=== PATIENT | female | born 1995 | race Asian ===

== ENCOUNTER 2017-10-24 18:12 | Emergency (ER) | payer OTHER ==
[~2017-10-24] VITALS: Ht 161.3 cm; Wt 54.3 kg
[2017-10-24 18:38] VITALS: BP 119/78; PULSE 88; TEMP 36.5; O2SAT 99; Ht 161.3 cm; Wt 54.3 kg
--- NOTE | 2017-10-24 19:41 | DIAGNOSTIC IMAGING REPORT ---
R TIBIA/FIBULA 2 VIEWS ROUTINE CLINICAL HISTORY: 21 years-old Female presenting with R lower leg pain. TECHNIQUE: Frontal and lateral views of the right lower leg were obtained. COMPARISON: None. FINDINGS: No acute fracture or malalignment. No advanced degenerative change. No radiographic soft tissue abnormality. IMPRESSION: No acute osseous injury. Electronically signed by: Tyrel Jones M.D. 10/24/2017 7:39 PM Dictated Date/Time: 10/24/2017 7:39 PM
--- NOTE | 2017-10-24 20:47 | EMERGENCY ROOM VISIT NOTE ---
ED Visit Note First contact with patient: 18:42 Chief Complaint: Right bond pain. History of Present Illness: Ms. Koenig is a 21-year-old female who ambulates into the ED complaining of right lower leg pain. Historically patient reports she had right lower leg pain last year while taking an exercise class. When she was done with the class which include running her pain slowly resolved. She reports she is just recently started running in a class I day ago and now her pain has returned. She is expressing concerns for a possible stress fracture. Patient is currently complaining of pain over the lateral tibia/fibula approximately 5-6 cm above the lateral malleolus. She reports at rest her pain is an achy sensation and she rates her discomfort 2/10. When she is running her pain becomes sharp in nature and increases to 6/10. Her pain is at the identical location that was last year. She has not taken any medication for pain prior to arrival at the hospital. Additionally palpation of the area increases her discomfort. She denies any associated symptoms including hip pain , knee pain, ankle pain, foot pain, leg weakness/numbness/tingling. Review of Systems: As noted above in history of present illness. Past Medical History: Pacemaker implantation. Current Medications: Patient denies. Allergies to Medications: Patient denies. 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 Physical Examination: Vital Signs: Date Time Temp Pulse Resp B/P (MAP) Pulse Ox O2 Delivery O2 Flow Rate FiO2 10/24/17 18:38 36.5 88 16 119/78 99 Room Air GENERAL: 21-year-old female in no acute distress, nontoxic-appearing, afebrile and hemodynamically stable. NEUROLOGICAL: Awake, alert and oriented to person, place and time. Answering questions appropriately and following commands. Normal gait. SKIN: Warm, dry and pink. No soft tissue eruptions or trauma noted. RIGHT LOWER EXTREMITY: No gross bony deformity. No shortening or malrotation. No tenderness over the hip, knee or ankle. Mild to moderate tenderness 5-6 cm superior to the lower malleolus over the lateral tibia and fibula. There is no bony deformity or bony crepitus in this area. There is no swelling or ecchymosis. No tenderness over the gastroc medius or Achilles tendon. She has full range of motion in flexion and extension of the knee and plantar flexion and dorsiflexion of the ankle against resistance. Throughout the lower leg the skin was warm and pink and capillary refill was brisk. She is able to distinguish light sensations to all dermatomes. ED Course: Patient is assessed as noted above. Patient's medication list was reviewed. Patient was offered pain medication and refused. Right Tibia/Fibula X-Rays: Were read by myself and the radiologist and shows no acute fractures or swelling. Patient was offered nonweightbearing crutches and refused. Patient was educated about today's findings and instructed on her treatment plan ; she verbalized understanding and agreement with this plan. Clinical Impression: Right lower leg pain. Disposition: Patient discharged home in stable condition; prior to departure she was reassessed and subjectively reported she was feeling the same. Plan: Comfort measures were discussed with the patient including rest, ice and alternating ibuprofen and acetaminophen. Patient was encouraged to follow-up with home office claim specialist if no better in 7 -10 days. Patient was encouraged return the ED for worsening/uncontrolled pain, uncontrolled swelling, leg weakness/numbness/tingling or any new/concerning symptoms.
== END 2017-10-24 20:16 | disposition home or self-care (01) ==
LOC: C.EDB 18:12 → C.EDD 20:16
DX: M79.661 Pain in right lower leg (principal); Z95.0 Presence of cardiac pacemaker